=== PATIENT | female | born 1985 | race Caucasian/White ===

== ENCOUNTER 2018-09-09 11:42 | Emergency (ER) | payer MEDICAID ==
[~2018-09-09] VITALS: Ht 160 cm; Wt 62.5 kg
[2018-09-09 11:47] VITALS: Ht 160 cm; Wt 62.5 kg
[2018-09-09] MEDS ORDERED: ONDANSETRON 4 MG INJ IV STA (12:29)
[2018-09-09] MEDS ORDERED: SOD CHLORIDE 0.9% 1,000 ML IV STA (12:29)
[2018-09-09] MEDS ORDERED: ACET500C5 PO (15:11)
--- NOTE | 2018-09-09 15:18 | ERD ---
ER Documentation Chief Complaint Chief Complaint C/O ABD. PAIN WITH N/V/D SINCE YESTERDAY. NO VAG. BLEEDING. 6 WEEKS PREG. HPI Patient is a 33-year-old female, G7, P4, A2, who presents to the ER for concerns of suprapubic and lower back pain x2 days. Patient denies any falls or trauma. Patient denies any vaginal bleeding. Patient denies any fevers or chills. Patient does report associated nausea and vomiting however she denies diarrhea contrary to triage note. Patient denies any dysuria, frequency, urgency or hematuria. Patient denies any falls or trauma. Patient has not establish care with an [facility] yet. ROS All systems reviewed and are negative except as per history of present illness. Medications Home Meds Active Scripts Cephalexin* (Keflex*) 500 Mg Capsule, 500 MG PO BID for 7 Days, CAP Prov:ROBERTO SCOTT PA-C 09/09/18 Acetaminophen* (Tylophen*) 500 Mg Capsule, 1 CAP PO Q6H PRN for PAIN AND OR ELEVATED TEMP, #20 CAP Prov:ROBERTO SCOTT PA-C 09/09/18 Allergies Allergies: Coded Allergies: No Known Allergy (Unverified , 09/09/18) PMhx/Soc Medical and Surgical Hx: pt denies Medical Hx, pt denies Surgical Hx Hx Alcohol Use: No Hx Substance Use: No Hx Tobacco Use: No Smoking Status: Never smoker FmHx Family History: No diabetes Physical Exam Vitals Vital Signs Date Temp Pulse Resp B/P (MAP) Pulse Ox O2 O2 Flow FiO2 Time Delivery Rate 09/09/18 98.3 68 18 112/72 98 Room Air 15:45 (85) 09/09/18 98.4 68 18 98/121 58 11:47 (113) Physical Exam GENERAL: Well-developed, well-nourished female. Appears in no acute distress. HEAD: Normocephalic, atraumatic. EYES: Pupils are equally reactive bilaterally. EOMs grossly intact. No conjunctival erythema. ENT: Moist mucous membranes. No uvula deviation. No kissing tonsils. NECK: Supple. No meningismus. Normal range of motion of the neck. LUNG: Clear to auscultation bilaterally. No rhonchi, wheezing, rales or coarse breath sounds. HEART: Regular rate and rhythm. No murmurs, rubs or gallops. ABDOMEN: Soft, and nondistended. Tender to palpation in the suprapubic region. Positive bowel sounds in all four quadrants. No rebound tenderness, no guarding. (-) McBurney's point tenderness. No CVA tenderness. BACK: No midline tenderness. EXTREMITIES: Equal pulses bilaterally. No peripheral clubbing, cyanosis or edema. No unilateral leg swelling. NEUROLOGIC: Alert and oriented. Moving all four extremities without any difficulty. Normal speech. Steady gait. SKIN: Normal color. Warm and dry. No rashes or lesions. Result Diagram: 09/09/18 1244 09/09/18 1244 Results 24 hrs Laboratory Tests Test 09/09/18 12:44 White Blood Count 8.5 10^3/ul Red Blood Count 5.13 10^6/ul Hemoglobin 14.5 g/dl Hematocrit 42.8 % Mean Corpuscular Volume 83.4 fl Mean Corpuscular Hemoglobin 28.3 pg Mean Corpuscular Hemoglobin Concent 33.9 g/dl Red Cell Distribution Width 13.7 % Platelet Count 276 10^3/UL Mean Platelet Volume 9.9 fl Immature Granulocytes % 0.400 % Neutrophils % 74.7 % Lymphocytes % 17.4 % Monocytes % 5.8 % Eosinophils % 1.5 % Basophils % 0.2 % Nucleated Red Blood Cells % 0.0 /100WBC Immature Granulocytes # 0.030 10^3/ul Neutrophils # 6.3 10^3/ul Lymphocytes # 1.5 10^3/ul Monocytes # 0.5 10^3/ul Eosinophils # 0.1 10^3/ul Basophils # 0.0 10^3/ul Nucleated Red Blood Cells # 0.0 10^3/ul Urine Color YELLOW Urine Clarity SLIGHTLY CLOUDY Urine pH 6.0 Urine Specific [place] 1.023 Urine Ketones TRACE mg/dL Urine Nitrite NEGATIVE mg/dL Urine Bilirubin NEGATIVE mg/dL Urine Urobilinogen NEGATIVE mg/dL Urine Leukocyte Esterase TRACE Olga/ul Urine Microscopic RBC 47 /HPF Urine Microscopic WBC 12 /HPF Urine Squamous Epithelial Cells MODERATE /HPF Urine Mucus MODERATE /HPF Urine Hemoglobin 1+ mg/dL Urine Glucose NEGATIVE mg/dL Urine Total Protein NEGATIVE mg/dl Sodium Level 140 mmol/L Potassium Level 3.5 mmol/L Chloride Level 106 mmol/L Carbon Dioxide Level 23 mmol/L Anion Gap 11 Blood Urea Nitrogen 10 mg/dl Creatinine 0.55 mg/dl Est Glomerular Filtrat Rate mL/min > 60 mL/min Glucose Level 97 mg/dl Calcium Level 9.1 mg/dl Total Bilirubin 0.7 mg/dl Direct Bilirubin 0.00 mg/dl Indirect Bilirubin 0.7 mg/dl Aspartate Amino Transf (AST/SGOT) 25 IU/L Alanine Aminotransferase (ALT/SGPT) 30 IU/L Alkaline Phosphatase 81 IU/L Total Protein 8.2 g/dl Albumin 4.4 g/dl Globulin 3.80 g/dl Albumin/Globulin Ratio 1.15 Lipase 53 U/L Beta HCG, Quantitative 79252.0 mIU/ml Current Medications Medications Dose Sig/Pat Start Time Status Last (Trade) Ordered Route PRN Stop Time Admin Dose Reason Admin Sodium 1,000 ml @ Q1H STAT 09/09/18 DC 09/09/18 Chloride 1,000 mls/hr IV 12:29 12:52 09/09/18 13:28 Ondansetron 4 mg ONCE STAT 09/09/18 DC 09/09/18 HCl (Zofran IV 12:29 12:52 Inj) 09/09/18 12:31 Procedures/MDM Patient: LEEANNA BOOKER : 1985 Age: 33 Sex: F MR #: [id number] DOS: 09/09/18 1236 Ordering MD: ROBERTO SCOTT PA-C Location: [facility] Room/Bed: PROCEDURE: US OB. CLINICAL INDICATION: Vaginal bleeding. TECHNIQUE: Transabdominal and transvaginal sonographic evaluation of the uterus was performed. COMPARISON: None. FINDINGS: There is a single intrauterine gestation containing yolk sac. Mean sac diameter measures 10.5 mm. Estimated gestational age based on this examination is 5 weeks and 4 days +/- 4 days. Estimated date of confinement based on this examination is 05/08/2019. There is trace fluid in the cervical canal. Right ovary measures 1.9 x 0.9 x 1.4 cm. Left ovary measures 2.7 x 2.1 x 2.1 cm. Normal vascular waveforms were sampled from both ovaries. There is no suspicious adnexal mass. There is trace free pelvic fluid. IMPRESSION: 1. Single intrauterine gestation containing yolk sac with estimated gestational age of 5 weeks and 4 days +/- 4 days. No visible pole. Recommend follow-up pelvic sonogram in 1 week to assess viability. 2. Trace fluid in the cervical canal. 3. Trace free pelvic fluid. RPTAT:AAEE Physician Olivia Date Time Electronically viewed and signed by Physician Olivia on 09/09/2018 14:57 RM/ CC: ROBERTO SCOTT PA-C [phone] MEDICAL DECISION MAKING: This is a 33-year-old female, G7, P4, A2, presents to the ER for concerns of suprapubic pain and lower back pain x2 days. Patient denies any vaginal bleeding. Vital signs were reviewed. Patient was afebrile. Patient was hemodynamically stable. Blood work was obtained. CBC showed no evidence of systemic infection or severe anemia. CMP showed no severe electrolyte abnormalities, acidosis, alkalosis or renal injury. UA did show trace leukocyte esterase. Urine will be sent for culture. Patient denies any dysuria, frequency, urgency or hematuria. Will defer treatment until culture results come back[place] [address]. Pelvic US showed 1. Single intrauterine gestation containing yolk sac with estimated gestational age of 5 weeks and 4 days +/- 4 days. No visible pole. Recommend follow-up pelvic sonogram in 1 week to assess viability. 2. Trace fluid in the cervical canal. 3. Trace free pelvic fluid. MEDICAL DECISION MAKING: At this time for the patient presentation most consistent with pelvic pain and back pain in the setting of . Patient was advised that not all components of the fetus was noted. Patient was advised she will need a repeat beta-hCG and ultrasound in 2 days to evaluate for pole. Patient was advised to follow-up with [facility]. Low suspicion for ectopic , subchorionic hemorrhage, UTI, pyelonephritis, nephrolithiasis, spontaneous , ovarian torsion, PID. Patient was nontoxic, [id number] prior to discharge. PRESCRIPTIONS: Tylenol DISCHARGE: At this time, patient is stable for discharge and outpatient management. I had a conversation at length with the patient about the concerns of vaginal bleeding during the 1st trimester of . Patient and/or family understands that her vaginal bleeding can be a normal finding or a sign of miscarriage. I have instructed the patient to follow-up with her OBGYN in 1-2 days for further monitoring including a repeat b-HCG level. I have instructed the patient to promptly return to the ER at any time for any new or worsening symptoms including increased pain, nausea, vomiting, continued bleeding, weakness, syncope or fever. The patient and/or family expressed understanding of and agreement with this plan. All questions were answered. Home care instructions were provided. Disclaimer: Inadvertent spelling and grammatical errors are likely due to EHR/dictation software use and do not reflect on the overall quality of patient care. Also, please note that the electronic time recorded on this note does not necessarily reflect the actual time of the patient encounter. Departure Diagnosis: Primary Impression: Pelvic pain in patient at greater than 20 weeks gesta... Condition: Fair Patient Instructions: Pelvic Pain In : Unclear (2-3 Trimester) Referrals: [facility] YOU HAVE RECEIVED A MEDICAL SCREENING EXAM AND THE RESULTS INDICATE THAT YOU DO NOT HAVE A CONDITION THAT REQUIRES URGENT TREATMENT IN THE EMERGENCY DEPARTMENT. FURTHER EVALUATION AND TREATMENT OF YOUR CONDITION CAN WAIT UNTIL YOU ARE SEEN IN YOUR DOCTORS OFFICE WITHIN THE NEXT 1-2 DAYS. IT IS YOUR RESPONSIBILITY TO MAKE AN APPOINTMENT FOR FOLOW-UP CARE. IF YOU HAVE A PRIMARY DOCTOR --you should call your primary doctor and schedule an appointment IF YOU DO NOT HAVE A PRIMARY DOCTOR YOU CAN CALL OUR PHYSICIAN REFERRAL HOTLINE AT IF YOU CAN NOT AFFORD TO SEE A PHYSICIAN YOU CAN CHOSE FROM THE FOLLOWING [facility] [address] [facility] [address] [facility] [address] [facility] [address] [facility] [address] [facility]. [facility]. [address] [facility]. [facility] YOU HAVE RECEIVED A MEDICAL SCREENING EXAM AND THE RESULTS INDICATE THAT YOU DO NOT HAVE A CONDITION THAT REQUIRES URGENT TREATMENT IN THE EMERGENCY DEPARTMENT. FURTHER EVALUATION AND TREATMENT OF YOUR CONDITION CAN WAIT UNTIL YOU ARE SEEN IN YOUR DOCTORS OFFICE WITHIN THE NEXT 1-2 DAYS. IT IS YOUR RESPONSIBILITY TO MAKE AN APPOINTMENT FOR FOLOW-UP CARE. IF YOU HAVE A PRIMARY DOCTOR --you should call your primary doctor and schedule and appointment IF YOU DO NOT HAVE A PRIMARY DOCTOR YOU CAN CALL OUR PHYSICIAN REFERRAL HOTLINE AT . IF YOU CAN NOT AFFORD TO SEE A PHYSICIAN YOU CAN CHOSE FROM THE FOLLOWING [facility] INSTITUTIONS: [facility] [address] [place] [address] [facility] [address] [place] [address] [facility] [address] [place] [address] Additional Instructions: Regreso en 2 levine para revisin de laboratorios y ultrasonido. Llame al doctor MAANA y manda dorita GABRIEL PARA DENTRO DE 1-2 COWART.Dgale a la secretaria que nosotros le instruimos hacer esta gabriel.Avise o llame si hernández condicin se empeora antes de la gabriel. Regresa aqui si peor o no mejor. ROBERTO SCOTT PA-C September 09, 2018 15:18
[2018-09-09] MEDS ORDERED: CEPH-443 PO (15:19)
[2018-09-09 15:45] VITALS: BP 112/72; PULSE 68; RESP 18
== END 2018-09-09 15:48 | disposition home or self-care (01) ==
LOC: FTE 11:42
DX: O26.891 Other specified pregnancy related conditions, first trimester (principal); R10.2 Pelvic and perineal pain; O21.9 Vomiting of pregnancy, unspecified; Z3A.01 Less than 8 weeks gestation of pregnancy
CPT/HCPCS: 36415; 76801; 76817; 80053; 81001; 83690; 84702; 85025; 86900; 86901; 87086; 96361; 96374; J2405; J7030; Z7502

== ENCOUNTER 2018-12-09 06:50 | Outpatient (CLI) | payer MEDICAID ==
[~2018-12-09] VITALS: Ht 152.4 cm; Wt 69.7 kg
[~2018-12-09 06:50] MED LIST: ACET500C5 PO; CEPH-443 PO; PNV11TAB PO
[2018-12-09 07:48] VITALS: BP 99/56; PULSE 71; RESP 18
--- NOTE | 2018-12-09 11:11 | TRIAGE ---
OB Triage Datetime Report Generated by CPN: 12/09/2018 11:10 Datetime: 12/09/2018 10:50 Heart Rate FHR Baseline Rate: 135 Comments: x 1 min Datetime: 12/09/2018 10:48 Stage of : OB Triage Datetime: 12/09/2018 10:03 Comments: removed due to gestational age Datetime: 12/09/2018 10:01 Labor Evaluation Frequency: 0 Monitor Mode: External Pattern: Normal: <= 5 Contractions in 10 Minutes Resting Tone [place]: Relaxed Pain Assessment Pain Scale: 3 Pain Presence: Constant Pain Type: Pressure Pain Location: Perineum Pain Goal: 3 Pain Relief Measures: Comfort Measures Datetime: 12/09/2018 09:03 Labor Evaluation Frequency: 1 Monitor Mode: External Duration (sec)2399: 30 Pattern: Normal: <= 5 Contractions in 10 Minutes Resting Tone [place]: Relaxed Comments: removed due to gestational age Pain Assessment Pain Scale: 5 Pain Presence: Intermittent Pain Type: Cramping Pain Location: Perineum Pain Goal: 3 Pain Relief Measures: Comfort Measures Datetime: 12/09/2018 08:34 Stage of : OB Triage Datetime: 12/09/2018 07:40 Stage of : OB Triage Assessment Type: Triage Maternal Assessment Level of Consciousness: Keenly Alert, Responsive DTR's/Clonus: DTRs 2+; No Clonus Headache: Denies Blurred Vision: No Respiratory Effort: Unlabored; Regular Rhythm; Equal Expansion Breath Sounds, Left: Clear and Equal Breath Sounds, Right: Clear and Equal Nausea/Vomiting: Denies RUQ Epigastric Pain: Denies Facial Edema: None Temperature Route: Axillary Fall Risk Assessment History of Falling: (0) No Secondary Diagnosis: (0) No Ambulatory Aid: (0) Bedrest/Nurse Assist IV Therapy: (0) No Gait: (0) Normal/Bedrest/Immobile Mental Status: (0) Oriented to Own Ability Fall Score: 0 Fall Risk Score Definition: No Risk: No action required Labor Evaluation Frequency: 0 Monitor Mode: External Pattern: Normal: <= 5 Contractions in 10 Minutes Resting Tone [place]: Relaxed Heart Rate FHR Baseline Rate: 135 (Annotations: X 2 MIN) Monitor Mode: External US Comments: REMOVED DUE TO GESTATIONAL AGE Pain Assessment Pain Scale: 5 Pain Presence: Intermittent Pain Type: Cramping Pain Location: Back; Perineum Pain Goal: 3 Pain Relief Measures: Comfort Measures Datetime: 12/09/2018 07:38 Time of Arrival: 12/09/2018 06:48 EGA: 20.4 Arrived By: Ambulatory Arrived From: Home Chief Complaint: C/O LOWER PERINEAL PAIN AND BACK PAIN, SOME FREQUENCY OF URINATION, DENIES LEAKING OR BLEEDING Movement: Present Contractions: Denies/Absent Rupture of Membranes: Denies Vaginal Bleeding: None Vaginal Discharge: Denies Recent Sexual Intercouse: Denies Abdominal Trauma: Not Applicable Time Provider Notified: 12/09/2018 08:34 Provider Notified: jason Initial Plan: FHT, TOCO, U/A C_S
--- NOTE | 2018-12-09 12:48 | PN ---
Triage Information Date/Time 12/09/2018 Reason for visit: Urinary frequency, low back pain, lower abdominal pain, cramps Weeks of Gestation 20 weeks and 4 days /Para Diabetes: none Hypertention: none Additional information 33 years old with IUP at 20 weeks and 4 days presented with complain of cramps and contractions and low back pain. She denies any leaking of fluid, vaginal bleeding or decreased movement. She also complains of urinary frequency. Objective Vital Signs Date Temp Pulse Resp B/P (MAP) Pulse Ox O2 O2 Flow FiO2 Time Delivery Rate 12/09/18 98.4 71 18 99/56 (70) 07:48 Heart Rate: 130's Contractions: None Exam General appearance: Alert and oriented x4 appears to be in mild distress. Abdomen: Soft, gravid, fundal height appears to correlate with gestational age heart tones visualized and within normal limits with ultrasound with Doppler Transvaginal cervical length: 5 cm. UA consistent with UTI Laboratory Tests Test 12/09/18 07:45 Urine Color YELLOW Urine Clarity SLIGHTLY CLOUDY A Urine pH 8.0 Urine Specific [place] 1.006 Urine Ketones NEGATIVE Urine Nitrite NEGATIVE Urine Bilirubin NEGATIVE Urine Urobilinogen NEGATIVE Urine Leukocyte Esterase 2+ H Urine Microscopic RBC 2 Urine Microscopic WBC 10 H Urine Squamous Epithelial Cells FEW Urine Bacteria FEW A Urine Hemoglobin 1+ H Urine Glucose NEGATIVE Urine Total Protein NEGATIVE Results/Medications Results 24 hrs Laboratory Tests Test 12/09/18 07:45 Urine Color YELLOW Urine Clarity SLIGHTLY CLOUDY A Urine pH 8.0 Urine Specific [place] 1.006 Urine Ketones NEGATIVE Urine Nitrite NEGATIVE Urine Bilirubin NEGATIVE Urine Urobilinogen NEGATIVE Urine Leukocyte Esterase 2+ H Urine Microscopic RBC 2 Urine Microscopic WBC 10 H Urine Squamous Epithelial Cells FEW Urine Bacteria FEW A Urine Hemoglobin 1+ H Urine Glucose NEGATIVE Urine Total Protein NEGATIVE Disposition: Discharge Assessment/Plan IUP at 20 weeks and 4 days Low back pain and lower abdominal pain and cramps, urinary frequency Urine analysis consistent with UTI Symptoms related to UTI Patient received hydration Symptoms improved. No evidence of labor Antibiotic prescribed. Keflex 500 mg p.o. 4 times daily for 7 days Adequate hydration and follow-up within 48 hours after discharge from the hospital with a strict labor precaution discussed with patient Patient verbalized understanding all questions were answered to patient's best satisfaction MURRAY JAFFE MD Dec 09, 2018 12:47
== END 2018-12-09 11:00 | disposition home or self-care (01) ==
LOC: OBT 06:50 → L-D 06:50 → OBT 11:00
PROVIDERS: ATTEND Obstetrics & Gynecology
DX: O26.892 Other specified pregnancy related conditions, second trimester (principal); Z3A.20 20 weeks gestation of pregnancy; M54.5 Low back pain; R10.30 Lower abdominal pain, unspecified
CPT/HCPCS: 76815; 76817; 81001; 87086; Z7500; G0463

== ENCOUNTER 2018-12-24 16:38 | Inpatient (IN) | payer MEDICAID ==
[~2018-12-24 16:38] MED LIST changes: -ACET500C5 PO; -CEPH-443 PO
[2018-12-24 17:46] VITALS: BP 106/56; PULSE 73; RESP 18
[2018-12-24] MEDS: LACTATED RINGER'S 1,000 ML IV SCH (21:27)
[2018-12-25] VITALS (14 sets, daily range): BP systolic 94–106; BP diastolic 45–59; PULSE 72–88; RESP 14–24
[2018-12-25] MEDS: LACTATED RINGER'S 1,000 ML IV SCH ×4 (01:30→23:54)
[2018-12-25] MEDS ORDERED: INDOMETHACIN 50 MG PO ONE (09:00)
[2018-12-25] MEDS ORDERED: PROPOFOL 20 ML ONE (14:47)
[2018-12-25] MEDS ORDERED: ROCURONIUM 50 MG INJ ONE (14:47)
[2018-12-25] MEDS ORDERED: LIDOCAINE 2% (SDV) 5 ML INJ ONE (14:49)
[2018-12-25] MEDS ORDERED: HYDROmorphONE 1 MG/5 ML IV SYRINGE IV PRN ×3 (15:00)
[2018-12-25] MEDS ORDERED: ONDANSETRON 4 MG INJ IV PRN (15:00)
[2018-12-25] MEDS ORDERED: CEFAZOLIN 1 GM INJ ONE (15:05)
[2018-12-25] MEDS ORDERED: ONDANSETRON 4 MG INJ ONE (15:05)
[2018-12-25] MEDS ORDERED: SUGAMMADEX SODIUM 200 MG/2 ML VIAL IV ONE (15:31)
[2018-12-25] MEDS: INDOMETHACIN 25 MG PO SCH (21:20)
[2018-12-25] MEDS ORDERED: ACETAMINOPHEN 325 MG TAB PO PRN (22:30)
[2018-12-26] MEDS: INDOMETHACIN 25 MG PO SCH (08:52)
== END 2018-12-26 13:30 | disposition home or self-care (01) | DRG 819 ==
LOC: L-D 16:38
PROVIDERS: ADMIT Obstetrics & Gynecology; ATTEND Obstetrics & Gynecology
PROC: 0UVC7ZZ Restriction of Cervix, Via Natural or Artificial Opening (ICD-10-PCS; principal; 2018-12-25 14:00)
DX: O26.872 Cervical shortening, second trimester (principal); Z3A.21 21 weeks gestation of pregnancy
CPT/HCPCS: 76815; 84112; 85025; 85384; 85610; 85730; J0690; J1170; J2405; J3010; J7120